=== PATIENT | male | born 2000 | race Caucasian/White ===

== ENCOUNTER 2021-04-22 20:07 | Emergency (ER) | payer MEDICAID, SELFPAY ==
[2021-04-22 20:14] VITALS: BP 138/98; PULSE 94; RESP 20; TEMP 36.3; O2SAT 98; BMI 19.0
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
== END 2021-04-22 21:17 | disposition short-term general hospital (02) ==
LOC: HO.ED 21:10
PROVIDERS: Emergency Provider Internal Medicine
DX: H43.11 Vitreous hemorrhage, right eye (principal); S05.91XA Unspecified injury of right eye and orbit, initial encounter; W34.011A Accidental discharge of paintball gun, initial encounter; Y93.9 Activity, unspecified; Y92.9 Unspecified place or not applicable; Y99.9 Unspecified external cause status
CPT/HCPCS: 99285